=== PATIENT | female | born 1990 ===

== ENCOUNTER 2022-09-28 12:00 | Emergency (ER) | payer OTHER, SELFPAY ==
--- NOTE | 2022-09-28 12:21 | ED.GENADULT ---
HPI - General Adult General Chief complaint: Urogenital-Female Stated complaint: Kidney stone? Back pain nausea Related Data Allergies Allergy/AdvReac Type Severity Reaction Status Date / Time No Known Allergies Allergy Verified 09/28/22 12:21 [facility] Social History Social History Advance Directives: No Physical Exam ED Vital Signs: Vital Signs - 24 hr 09/28/22 12:22 Temperature 96 F L Pulse Rate 133 H Respiratory Rate 19 Blood Pressure 140/71 H Pulse Oximetry 98 BMI result Body Mass Index 48.8 Course Course Course Narrative: RME: 31yo F w/PMHx renal stones, c/o bilateral flank pain radiating to lower abdomen since last night w/assoc urinary frequency, nausea and vomiting. Also reports chills. denies prior abdominal surgery Appears uncomfortable Labs, UA, CTAP ordered Full HPI, ROS and PE to be performed by primary ED provider. Reevaluation(s) Reevaluation #1: Patient apparently eloped. I did review her lab test. She does have some mild white blood cells in her or urine. However, this does not otherwise to urinary tract infection. I did attempt to contact the patient but unsuccessful. Time: 14:50 Medical Decision Making Lab Data 09/28/22 12:36 09/28/22 12:36 Labs: Lab Results 09/28/22 09/28/22 09/28/22 Range/Units 12:36 12:36 12:36 WBC 12.8 H (4.8-10.8) X10*3/uL RBC 4.18 L (4.20-5.50) X10*6/uL Hgb 13.1 (12.0-16.0) g/dl Hct 39.1 (37.0-47.0) % MCV 93.5 (80.0-98.0) fL MCH 31.3 (27.0-33.0) pg MCHC 33.5 (31.0-35.0) g/dl RDW 13.7 (11.0-16.0) % Plt Count 290 (160-400) X10*3/uL MPV 8.6 L (9.4-12.3) fL Immature Gran % (Auto) 0.7 H (0.0-0.4) % Neut % (Auto) 87.4 H (45-73) % Lymph % (Auto) 6.8 L (20-40) % Elk % (Auto) 4.6 (2-11) % Eos % (Auto) 0.3 (0-4) % Baso % (Auto) 0.2 (0-2) % Lymph # (Auto) 0.9 L (1.2-4.9) X10*3/uL Elk # (Auto) 0.6 (0.1-1.2) X10*3/uL Eos # (Auto) 0.0 (0.0-0.4) X10*3/uL Baso # (Auto) 0.0 (0.0-0.2) X10*3/uL Abs Immat Gran (auto) 0.09 H (0.00-0.03) X10*3/uL Absolute Neuts (auto) 11.2 H (2.0-8.3) x10*3/uL Absolute Nucleated RBC 0.000 (0.0-0.012) X10*3/uL Nucleated RBC % (auto) 0.0 (0.0-0.2) /100WBC Sodium 134 L (135-145) mmol/L Potassium 3.8 (3.3-5.1) mmol/L Chloride 105 (96-108) mmol/L Carbon Dioxide 19 L (22-29) mmol/L Anion Gap 14 (12-20) BUN 14 (9-16) mg/dL Creatinine 1.00 (0.5-1.4) mg/dL Estim Creat Clear Calc 94.4 Estimated GFR > 60 Random Glucose 116 H (60-115) mg/dL Calcium 9.1 (8.4-10.2) mg/dL Total Bilirubin 0.7 (0.0-1.0) mg/dL Direct Bilirubin 0.2 (0.0-0.5) mg/dL AST 15 (5-31) U/L ALT 26 (0-31) U/L Alkaline Phosphatase 81 (39-117) U/L Total Protein 7.7 (6.5-8.0) g/dL Albumin 4.4 (3.5-5.0) g/dL Lipase 30 (8-78) U/L Urine Color Yellow Urine Appearance Clear Urine pH 5.5 (5.0-9.0) Ur Specific [place] 1.010 (1.005-1.025) Urine Protein Negative (Neg-Trace) mg/dL Urine Glucose (UA) Negative (Negative) mg/dL Urine Ketones Negative (Negative) mg/dL Urine Blood Small (1+) H (Negative) Urine Nitrite Negative (Negative) Ur Leukocyte Esterase Trace H (Negative) Urine RBC 3-5 H (0-2) /HPF Urine WBC 6-10 H (0-5) /HPF Ur Squamous Epith Cells 0-2 (0-2) /HPF Urine Bacteria None Seen (None Seen) Hyaline Casts 0-2 (0-2) /LPF Discharge Plan Discharge Clinical Impression: Eloped from emergency department Patient Disposition: Elopement Discharge Date/Time: 09/28/22 14:11
[2022-09-28 12:22] VITALS: BP 140/71; PULSE 133; RESP 19; TEMP 35.5; O2SAT 98; BMI 48.8
--- NOTE | 2022-09-28 12:39 | MHC.EDTECH ---
Labs and urine collected and sent to lab
[2022-09-28 12:42] LABS: MANUAL DIFF FLAG NO
[2022-09-28 12:44] LABS: Appearance Urine Clear; Basophils Percent Auto 0.2 % (0-2); Color Urine Yellow; Eosinophils Percent Auto 0.3 % (0-4); Glucose Urine UA Negative (Negative); Hematocrit 39.1 % (37.0-47.0); Hemoglobin 13.1 g/dl (12.0-16.0); Imm Gran Abs Auto 0.09 X10*3/uL (0.00-0.03); Imm Gran Pct Auto 0.7 % (0.0-0.4); Leukocyte Esterase Urine Trace (Negative); Lymphocytes Absolute Auto 0.9 X10*3/uL (1.2-4.9); Lymphocytes Percent Auto 6.8 % (20-40); Mean Corpuscular HGB Conc 33.5 g/dl (31.0-35.0); Mean Corpuscular Hemoglobin 31.3 pg (27.0-33.0); Mean Corpuscular Volume 93.5 fL (80.0-98.0); Mean Platelet Volume 8.6 fL (9.4-12.3); Monocytes Absolute Auto 0.6 X10*3/uL (0.1-1.2); Monocytes Percent Auto 4.6 % (2-11); Neutrophils Absolute Auto 11.2 x10*3/uL (2.0-8.3); Neutrophils Percent Auto 87.4 % (45-73); Nitrite Urine Negative (Negative); PH 5.5 (5.0-9.0); Platelet Count 290 X10*3/uL (160-400); Red Blood Count 4.18 X10*6/uL (4.20-5.50); Red Cell Distribution Width 13.7 % (11.0-16.0); UMIC TRIGGER UACC YES; Urine Blood Small (1+) (Negative); Urine Ketones Negative (Negative); Urine Protein Negative (Neg-Trace); White Blood Count 12.8 X10*3/uL (4.8-10.8)
[2022-09-28 12:56] LABS: Bacteria Urine None Seen (None Seen); Hyaline Casts Urine 0-2 /LPF (0-2); Squamous Epithelial Cell Urine 0-2 /HPF (0-2); UACC Culture Trigger YES
[2022-09-28 12:59] LABS: Alanine Aminotransferase 26 U/L (0-31); Albumin Level 4.4 g/dL (3.5-5.0); Alkaline Phosphatase 81 U/L (39-117); Anion Gap 14 (12-20); Aspartate Amino Transferase 15 U/L (5-31); Bilirubin Direct 0.2 mg/dL (0.0-0.5); Bilirubin Total 0.7 mg/dL (0.0-1.0); Blood Urea Nitrogen 14 mg/dL (9-16); Calcium 9.1 mg/dL (8.4-10.2); Carbon Dioxide 19 mmol/L (22-29); Chloride 105 mmol/L (96-108); Creatinine Clr Calc Pharmacy 94.4; Estimated Glomerular Filt Rate > 60; Glucose Random 116 mg/dL (60-115); Lipase 30 U/L (8-78); Potassium 3.8 mmol/L (3.3-5.1); Sodium 134 mmol/L (135-145); Total Protein 7.7 g/dL (6.5-8.0)
--- OUTSIDE RECORDS SUMMARY | 2022-09-28 14:00 | XMS_ITS | Continuity of Care Document ---
Author Name Unknown Organization [facility] Address [address] [place] [address]- Care Team Providers Care Plant Anatomy Teacher Name Role Phone Zeenat Kumar DO Primary Care Physician [place] [facility] [place] 07/13/22 - 08/12/22 [facility]/[place] [address]- Attending Physician: Demetrius Clayton Admitting Physician: AdmDemetrius paniagua Referring Physician: AdmtrDemetrius Allergies, Adverse Reactions, Alerts Substance Reaction Severity Status Animal Dander 1 Active Bee Stings Active 1cat dander Immunizations Given and Recorded Vaccine Date Status Refusal Reason influenza virus vaccine, inactivated 06/01/22 Give n tetanus/diphtheria/pertussis, acel(Tdap) 10/19/18 Given tetanus/diphtheria/pertussis, acel(Tdap) 03/20/09 Given Human Papillomavirus Vaccine 04/24/15 Given Human Papillomavirus Vaccine 07/10/14 Given influ virus vac, H1N1, inactive(oldterm) 02/24/10 Given tetanus-diphtheria toxoids (Td) 01/29/04 Given Varicella Virus Vaccine 04/08/97 Given Measles/Mumps/Rubella Virus Vaccine 11/28/96 Given Measles/Mumps/Rubella Virus Vaccine 11/13/92 Given Haemophilus B Conj Vaccine (oldterm) 01/11/96 Give n Haemophilus B Conj Vaccine (oldterm) 02/12/93 Give n Poliovirus Vaccine, Inactivated 12/11/95 Given Poliovirus Vaccine, Inactivated 05/10/93 Given Poliovirus Vaccine, Inactivated 03/07/92 Given Poliovirus Vaccine, Inactivated 01/11/92 Given Diphth/Pertussis,Acel/Tetanus (oldterm) 12/11/95 G iven Diphth/Pertussis,Acel/Tetanus (oldterm) 05/10/93 G iven Diphth/Pertussis,Acel/Tetanus (oldterm) 05/09/92 G iven Diphth/Pertussis,Acel/Tetanus (oldterm) 03/07/92 G iven Diphth/Pertussis,Acel/Tetanus (oldterm) 01/11/92 G iven Hepatitis B Vaccine (old term) 02/12/93 Given Hepatitis B Vaccine (old term) 06/11/92 Given Hepatitis B Vaccine (old term) 04/10/92 Given Medications Antonette 24 Hour Allergy oral tablet 1 tablet, By Mouth, Daily, # 30 tablet, 0 Refills, Maintenance, 06/01/22 16:54:00 EST, Tablet, Partial fill upon patient request if the prescription is for a schedule II opioid drug. Start Date: 06/01/22 Status: Ordered azelastine nasal 0.15% spray 2 sprays, Nares, Both, Daily, PRN for allergy symptoms, USE IN AM AND CAN USE FLONASE IN PM AFTER SINUS RINSE, # 1 each, 1 Refills, Maintenance, 07/27/22 19:14:00 EDT, [place], [id number], Partial fill upon patient request if the prescription is... Start Date: 07/27/22 Status: Ordered azelastine-fluticasone 137 mcg-50 mcg/inh nasal spray See Instructions, 1 sprays 2 times a day in each nostril. IF COVERED BY INSURANCE (D/C RX FOR ASTEPRO), # 23 Gm, 1 Refills, Maintenance, 07/27/22 19:12:00 EDT, [id number], Partial fill upon patient request if the prescription is for a schedu... Start Date: 07/27/22 Status: Ordered meloxicam 15 mg oral tablet TAKE 1 TABLET BY MOUTH EVERY DAY NEEDED Start Date: 06/01/22 Status: Ordered NeilMed Sinus Rinse Kit nasal powder for reconstitution See Instructions, PLS GIVE WHOLE KIT INCLUDING THE SINUS RINSE BOTTLE OR NETIPOT IF COVERED, # 1 kit, 1 Refills, Maintenance, 07/27/22 19:09:00 EDT, [id number], Partial fill upon patient request if the prescription is for a schedule II opioid... Start Date: 07/27/22 Status: Ordered tiZANidine 4 mg oral tablet TAKE 1 TABLET BY MOUTH THREE TIMES A DAY NEEDED Start Date: 06/01/22 Status: Ordered Vistaril pamoate 25 mg oral capsule 1 capsule = 25 mg, By Mouth, Daily at bedtime, PRN for anxiety, for 14 days, # 14 capsule, 1 Refills, Acute 08/24/22 19:07:00 EDT, 07/27/22 19:07:00 EDT, [place], [id number], Partial fill upon patient request if the prescription is for a sched... Start Date: 07/27/22 Stop Date: 08/24/22 Status: Ordered Problem List Condition Confirmation Course Effective Dates Status Health St atus Informant Anemia, mild Confirmed Active History of gestational diabetes Confirmed Active Positive depression screening Confirmed Active Headache, classical migraine Confirmed Active Obesity Confirmed Active Severe obesity Confirmed Active Social History Social History Type Response Tobacco Use: 4 or less cigar ettes(less than 1/4 pack)/day in last 30 days. Other: 1-2/day, skip some days. Smokeless tobacco use: not smoking daily. Sex Note * Event Display: X-Ray Hand/Wrist, Non- Authored Date: * Event Display: X-Ray Spine, Non- Authored Date: * Event Display: Ultrasound Abdomen, Non- Authored Date: * Event Display: X-Ray Spine, Non- Authored Date: Patient Care team information Care Team Personnel Name: Zeenat Kumar DO Position: S Resident Member Role: PCP Address: Address: [address] [place] [address] [place] [address]- Care Team Related Persons Name: MADELAINE DARBY Address: [address] Address: home [address] [place] [address] [place] Name: MARY DARBY Address: home [address] [place] [address] Name: GABI STOLL Address: home [address] [place] [address]
--- OUTSIDE RECORDS SUMMARY | 2022-09-28 14:00 | XMS_ITS | Continuity of Care Document ---
Author Name Unknown Organization [facility] Address [address] [place] [address]- Care Team Providers Care Managing Principal Name Role Phone Not on Staff, PCP Primary Care Physician Unavail able [facility] Date[facility]s): 02/[facility]/21 - 03/12/[address] [address] Attending Physician: Ursula Teixeira CNM Admitting Physician: Ursula Teixeira CNM Referring Physician: Ursula Teixeira CNM Allergies, Adverse Reactions, Alerts Substance Reaction Severity Status Animal Dander 1 Active Bee Stings Active 1cat dander Immunizations Given and Recorded Vaccine Date Status Refusal Reason tetanus/diphtheria/pertussis, acel(Tdap) 10/19/18 Given tetanus/diphtheria/pertussis, acel(Tdap) 03/20/09 [...] B Vaccine (old term) 04/10/92 Given Medications Benadryl 25 mg oral capsule 1 capsule = 25 mg, By Mouth, 3 times a day, 0 Refills, Maintenance, 06/01/18 19:39:46 EST Start Date: 06/01/18 Status: Ordered ferrous sulfate 160 mg oral tablet, extended release 1 tablet = 160 mg, By Mouth, Daily, # 30 tablet, 3 Refills, Maintenance, 07/20/18 20:05:50 EDT, ER Tablet Start Date: 07/20/18 Stop Date: 11/17/18 Status: Ordered ibuprofen 600 mg oral tablet 600 mg, 1, tablet, By Mouth, Every 6 hours, PRN, # 40 tablet, Refills 3, Tot. Refills 3, Maintenance, Pain , Mild, 09/21/19 10:59:00 EDT, Route to Pharmacy Electronically, [facility], 155, cm, 09/21/19 10:09:00 EDT, Height, 96.4, kg, 05/... Start Date: 09/21/19 Status: Ordered Liletta 52 mg intrauterine device 1 each = 52 mg, Intrauterine, Once, Please bring to surgery for insertion., # 1 each, 0 Refills, Soft Stop, 09/21/19 10:59:00 EDT, [facility], 155, cm, 09/21/19 10:09:00 EDT, Height, 96.4, kg, 09/01/19 15:40:00 EDT, Dry Weight Start Date: 09/21/19 Status: Ordered Loratadine By Mouth, Daily, Refills 0, Maintenance, 06/01/18 19:39:26 EST Start Date: 06/01/18 Status: Ordered miSOPROStol 200 mcg oral tablet See Instructions, Place tablets between cheek and gums three hours prior to surgery., # 2 tablet, 0Refills, Maintenance, 09/21/19 10:59:00 EDT, [facility], 155, cm, 09/21/19 10:09:00 EDT, Height, 96.4, kg, 09/01/19 15:40:00 EDT, Dry Weight Start Date: 09/21/19 Status: Ordered PNV oral tablet 1 tablet, By Mouth, Daily, # 30 tablet, 11 Refills, Maintenance, 06/02/18 13:21:00 EST, 1 tablet ByMouth Daily,x30 days Start Date: 06/02/18 Stop Date: 05/28/19 Status: Ordered ProAir HFA 90 mcg/inh inhalation aerosol with adapter See Instructions, 2 puffs Inhalation 4 times a day PRN, Refills 0, Maintenance, 08/06/15 15:53:04, Instructions Replace Required Details Start Date: 08/06/15 Status: Ordered Tums 500 mg oral tablet, chewable 500 mg, 1, tablet, Chew, 3 times a day, PRN, # 100 tablet, Refills 0, Tot. Refills 0, Maintenance, as needed for dyspepsia, 09/05/19 8:30:00 EDT, Route to Pharmacy Electronically, [facility] #[id number],155, cm, 09/05/19 8:27:00 EDT, Height, 96.4, kg, 05... Start Date: 09/05/19 Status: Ordered Tylenol 325 mg oral capsule 2 capsule = 650 mg, By Mouth, Every 4 hours, PRN as needed for pain, # 90 capsule, 0 Refills, Maintenance, 09/05/19 8:27:00 EDT, Capsule, [facility], [facility], cm, 09/05/19 8:27:00 EDT, Height, 96.4, kg, 09/01/19 15:40:00 EDT, Dry Weight Start Date: 09/05/19 Status: Ordered Zofran 4 mg oral tablet 1 tablet = 4 mg, By Mouth, Every 8 hours, PRN Nausea & Vomiting, # 10 tablet, 0 Refills, Maintenance, 09/05/19 8:28:00 EDT, Tablet, [facility], 155, cm, 09/05/19 8:27:00 EDT, Height, 96.4, kg, 09/01/19 15:40:00 EDT, Dry Weight Start Date: 09/05/19 Status: Ordered Problem List Condition Effective Dates Status Health Status Inform ant Anemia, mild(Confirmed) Active History of gestational diabetes(Confirmed) Active Positive depression screening(Confirmed) Active Headache, classical migraine(Confirmed) Active Obesity(Confirmed) Active Social History Social History Type Response Smoking Status Former smoker, quit more than 30 days ago; Tobacco user in household: No; Other: no cig in 5ds; entered on: 08/30/19 Sex
--- OUTSIDE RECORDS SUMMARY | 2022-09-28 14:00 | XMS_ITS | Continuity of Care Document ---
Author Name Unknown Organization [facility] Address [address] [place] [address]- Care Team Providers Care Laborer Stores Name Role Phone Not on Staff, PCP Primary Care Physician Unavail able [facility] Date[facility]s): 10/29/19 - 11/28/19 [facility] [address] [place] [address]- [facility] Attending Physician: Demetrius Clayton Admitting Physician: AdmDemetrius [...] 09/21/19 10:59:00 EDT, Route to Pharmacy Electronically, [facility], 155, cm, 09/21/19 10:09:00 EDT, Height, 96.4, kg, 05/... Start Date: 09/21/19 Status: Ordered Liletta 52 mg intrauterine device 1 each = 52 mg, Intrauterine, Once, Please bring to surgery for insertion., # 1 each, 0 Refills, Soft Stop, 09/21/19 10:59:00 EDT, [facility], 155, cm, 09/21/19 10:09:00 EDT, Height, 96.4, kg, 09/01/19 15:40:00 EDT, Dry Weight Start Date: 09/21/19 Status: Ordered Loratadine By Mouth, Daily, Refills 0, Maintenance, 06/01/18 19:39:26 EST Start Date: 06/01/18 Status: Ordered miSOPROStol 200 mcg oral tablet See Instructions, Place tablets between cheek and gums three hours prior to surgery., # 2 tablet, 0Refills, Maintenance, 09/21/19 10:59:00 EDT, [facility], 155, cm, 09/21/19 10:09:00 [...] 09/05/19 8:30:00 EDT, Route to Pharmacy Electronically, [facility] #[id number],155, cm, 09/05/19 8:27:00 EDT, Height, 96.4, [...]
--- OUTSIDE RECORDS SUMMARY | 2022-09-28 14:00 | XMS_ITS | Continuity of Care Document ---
Author Name Unknown Organization [facility] Address [address] [place] [address]- Care Team Providers Care Attorney Lawyer Name Role Phone Not on Staff, PCP Primary Care Physician Unavail able [facility] Date[facility]s): 10/04/19 - 11/03/19 [facility] [address] [address]- [facility] Attending Physician: Demetrius Clayton Admitting Physician: Demetrius Clayton Referring Physician: AdmtrDemetrius Allergies, Adverse Reactions, Alerts [...] 09/21/19 10:59:00 EDT, Route to Pharmacy Electronically, [facility], 155, cm, 09/21/19 10:09:00 EDT, Height, 96.4, kg, 05/... Start Date: 09/21/19 Status: Ordered Liletta 52 mg intrauterine device 1 each = 52 mg, Intrauterine, Once, Please bring to surgery for insertion., # 1 each, 0 Refills, Soft Stop, 09/21/19 10:59:00 EDT, [facility], 155, cm, 09/21/19 10:09:00 EDT, Height, 96.4, kg, 09/01/19 15:40:00 EDT, Dry Weight Start Date: 09/21/19 Status: Ordered Loratadine By Mouth, Daily, Refills 0, Maintenance, 06/01/18 19:39:26 EST Start Date: 06/01/18 Status: Ordered miSOPROStol 200 mcg oral tablet See Instructions, Place tablets between cheek and gums three hours prior to surgery., # 2 tablet, 0Refills, Maintenance, 09/21/19 10:59:00 EDT, [facility], 155, cm, 09/21/19 10:09:00 EDT, [...] 09/05/19 8:30:00 EDT, Route to [facility], [id number], cm, 09/05/19 8:27:00 EDT, Height, 96.4, [...]
--- OUTSIDE RECORDS SUMMARY | 2022-09-28 14:00 | XMS_ITS | Continuity of Care Document ---
Author Name Unknown Organization [facility] Address [address] [place] [address]- Care Team Providers Care Label Operator Name Role Phone Not on Staff, PCP Primary Care Physician Unavail able [facility]): 09/14[facility]19 - 10/21/[address] [address]- [facility] Attending Physician: Not on Staff, Attending MD Allergies, Adverse Reactions, Alerts Substance Reaction Severity [...] 09/21/19 10:59:00 EDT, Route to Pharmacy Electronically, [facility], 155, cm, 09/21/19 10:09:00 EDT, Height, 96.4, kg, 05/... Start Date: 09/21/19 Status: Ordered Liletta 52 mg intrauterine device 1 each = 52 mg, Intrauterine, Once, Please bring to surgery for insertion., # 1 each, 0 Refills, Soft Stop, 09/21/19 10:59:00 EDT, [facility], 155, cm, 09/21/19 10:09:00 EDT, Height, 96.4, kg, 09/01/19 15:40:00 EDT, Dry Weight Start Date: 09/21/19 Status: Ordered Loratadine By Mouth, Daily, Refills 0, Maintenance, 06/01/18 19:39:26 EST Start Date: 06/01/18 Status: Ordered miSOPROStol 200 mcg oral tablet See Instructions, Place tablets between cheek and gums three hours prior to surgery., # 2 tablet, 0Refills, Maintenance, 09/21/19 10:59:00 EDT, [facility], 155, cm, 09/21/19 10:09:00 EDT, Height, 96.4, kg, 09/01/19 15:40:00 EDT, Dry Weight Start Date: 09/21/19 Status: Ordered PNV oral tablet 1 tablet, By Mouth, Daily, # 30 tablet, 11 Refills, Maintenance, 06/02/18 13:21:00 EST, 1 tablet ByNcuth Daily,x30 days Start Date: 06/02/18 Stop Date: [...] 09/05/19 8:30:00 EDT, Route to Pharmacy Electronically, [facility] #[id number],155, cm, 09/05/19 8:27:00 EDT, Height, 96.4, [...]
--- OUTSIDE RECORDS SUMMARY | 2022-09-28 14:00 | XMS_ITS | Continuity of Care Document ---
Author Name Unknown Organization [facility] Address [address] [place] [address]- Care Team Providers Care Records Management Director Name Role Phone Not on Staff, PCP Primary Care Physician Unavail able [facility]): 04/02/22 - 05/02/22 [facility] [address] [place], [place] [address] Allergies, Adverse Reactions, Alerts Substance Reaction Severity [...] 09/21/19 10:59:00 EDT, Route to Pharmacy Electronically, [facility], 155, cm, 09/21/19 10:09:00 EDT, Height, 96.4, kg, ... Start Date: 09/21/19 Status: Ordered Liletta 52 mg intrauterine device 1 each = 52 mg, Intrauterine, Once, Please bring to surgery for insertion., # 1 each, 0 Refills, Soft Stop, 09/21/19 10:59:00 EDT, [facility], 155, cm, 09/21/19 10:09:00 EDT, Height, 96.4, kg, 09/01/19 15:40:00 EDT, Dry Weight Start Date: 09/21/19 Status: Ordered Loratadine By Mouth, Daily, Refills 0, Maintenance, 06/01/18 19:39:26 EST Start Date: 06/01/18 Status: Ordered miSOPROStol 200 mcg oral tablet See Instructions, Place tablets between cheek and gums three hours prior to surgery., # 2 tablet, 0Refills, Maintenance, 09/21/19 10:59:00 EDT, [facility], 155, cm, 09/21/19 10:09:00 EDT, [...] 09/05/19 8:30:00 EDT, Route to Pharmacy Electronically, [id number],155, cm, 09/05/19 8:27:00 EDT, Height, [...] Date: 09/05/19 Status: Ordered Problem List Condition Confirmation Course [...] cig in 5ds; entered on: 08/30/19 Sex Patient Care team information Care Team Personnel Name: Not on Staff, PCP Position: [facility] Physician (General Medicine) Member Role: PCP Care Team Related Persons Name: MADELAINE DARBY Address: [id number] Address: home [address] [place] [address] Name: MARY DARBY Address: home [address] [place] [id number] Name: GABI STOLL Address: home [address] [place] [address]
--- OUTSIDE RECORDS SUMMARY | 2022-09-28 14:00 | XMS_ITS | Continuity of Care Document ---
Author Name Unknown Organization [facility] Address [address] [place] [address]- Care Team Providers Care Optician Apprentice Dispensing Name Role Phone Zeenat Kumar DO Primary Care Physician [facility]): 06/01/22 - 07/18/22 [facility]/[place] [address]- Attending Physician: Nav Russell MD Admitting Physician: Nav Russell MD Allergies, Adverse Reactions, Alerts Substance Reaction [...] opioid drug. Start Date: 06/01/22 Status: Ordered cefdinir 300 mg oral capsule 1 capsule = 300 mg, By Mouth, 2 times a day, for 7 days, # 14 capsule, 0 Refills, Acute 07/20/22 17:28:00 EDT, 07/13/22 17:28:00 EDT, Caps[facility], [facility], Partial fill upon patient request ifthe prescription is for a schedule II opioid drug.,... Start Date: 07/13/22 Stop Date: 07/20/22 Status: Ordered meloxicam 15 mg oral tablet TAKE 1 TABLET BY MOUTH EVERY DAY NEEDED Start Date: 06/01/22 Status: Ordered tiZANidine 4 mg oral tablet TAKE 1 TABLET BY MOUTH THREE TIMES A DAY NEEDED Start Date: 06/01/22 Status: Ordered Vistaril pamoate 25 mg oral capsule 1 capsule = 25 mg, By Mouth, Daily at bedtime, PRN for anxiety, for 14 days, # 14 capsule, 0 Refills, Acute 07/27/22 17:26:00 EDT, 07/13/22 17:26:00 EDT, Caps[facility], [facility], Partial fill upon patient request if the prescription is for a sched... Start Date: 07/13/22 Stop Date: 07/27/22 Status: Ordered Problem List Condition Confirmation Course [...] Smokeless tobacco use: not smoking daily. Sex Patient Care team information Care Team Personnel Name: Zeenat Kumar DO Position: S Resident Member Role: PCP Address: Address: [address] [place] [address] [place] [address]- Care Team Related Persons Name: MADELAINE DARBY Address: [address] Address: home [address] [place] [address] [place] Name: MARY DARBY Address: home [address] [place] [id number] Name: GABI STOLL Address: home [address] [place] [address]
--- OUTSIDE RECORDS SUMMARY | 2022-09-28 14:00 | XMS_ITS | Continuity of Care Document ---
Author Name Unknown Organization [facility] Address [address] [place] [address]- Care Team Providers Care Resident Service Coordinator Name Role Phone Zeenat Kumar DO Primary Care Physician [facility]s): 06/11/22 - 07/19/22 [facility]/[place] [address]- Attending Physician: Not on Staff, Attending MD [...] Team Personnel Name: Zeenat Kumar DO Position: [facility] Resident Member Role: PCP Address: Address: [address] [place] [address] [place] [address]- Care Team Related Persons Name: MADELAINE DARBY Address: [address] Address: home [address] [place] [address] [place] Name: MARY DARBY Address: home [address] [place] [address] Name: GABI STOLL Address: home [address] [place] [address]
--- OUTSIDE RECORDS SUMMARY | 2022-09-28 14:00 | XMS_ITS | Continuity of Care Document ---
Author Name Unknown Organization [facility] Address [address] [place] [address]- Care Team Providers Care Education Adviser Name Role Phone Not on Staff, PCP Primary Care Physician Unavail able [facility]): [facility] - 11/04/[address] [address]- [facility] Attending Physician: Not on Staff, Attending MD [...] 09/21/19 10:59:00 EDT, Route to Pharmacy Electronically, [facility], 155, cm, 09/21/19 10:09:00 EDT, Height, 96.4, kg, 05/... Start Date: 09/21/19 Status: Ordered Liletta 52 mg intrauterine device 1 each = 52 mg, Intrauterine, Once, Please bring to surgery for insertion., # 1 each, 0 Refills, Soft Stop, 09/21/19 10:59:00 EDT, [facility], 155, cm, 09/21/19 10:09:00 EDT, Height, 96.4, kg, 09/01/19 15:40:00 EDT, Dry Weight Start Date: 09/21/19 Status: Ordered Loratadine By Mouth, Daily, Refills 0, Maintenance, 06/01/18 19:39:26 EST Start Date: 06/01/18 Status: Ordered miSOPROStol 200 mcg oral tablet See Instructions, Place tablets between cheek and gums three hours prior to surgery., # 2 tablet, 0Refills, Maintenance, 09/21/19 10:59:00 EDT, [facility], 155, cm, 09/21/19 10:09:00 EDT, Height, 96.4, kg, 09/01/19 15:40:00 EDT, Dry Weight Start Date: 09/21/19 Status: Ordered PNV oral tablet 1 tablet, By Mouth, Daily, # 30 tablet, 11 Refills, Maintenance, 06/02/18 13:21:00 EST, 1 tablet ByMiuth Daily,x30 days Start Date: 06/02/18 Stop Date: [...] 09/05/19 8:30:00 EDT, Route to Pharmacy Electronically, [facility]/pharmacy #[id number],155, cm, 09/05/19 8:27:00 EDT, Height, 96.4, [...]
--- OUTSIDE RECORDS SUMMARY | 2022-09-28 14:00 | XMS_ITS | Continuity of Care Document ---
Author Name Unknown Organization [facility] Address [address] [place] [address]- Care Team Providers Care Firer Retort Name Role Phone Not on Staff, PCP Primary Care Physician Unavail able [facility] Date[facility]s): 04/30/22 - 05/30/22 [facility] [address]- [place] Allergies, Adverse Reactions, Alerts Substance Reaction Severity [...] Diphth/Pertussis,Acel/Tetanus (oldterm) 05/09/92 G iven Diphth/Pertussis,Acel/Tetanus (oldterm) 11/19/92 G iven Diphth/Pertussis,Acel/Tetanus (oldterm) 01/11/92 G iven [...] 09/21/19 10:59:00 EDT, Route to Pharmacy Electronically, [facility], 155, cm, 09/21/19 10:09:00 EDT, Height, 96.4, kg, 05/... Start Date: 09/21/19 Status: Ordered Liletta 52 mg intrauterine device 1 each = 52 mg, Intrauterine, Once, Please bring to surgery for insertion., # 1 each, 0 Refills, Soft Stop, 09/21/19 10:59:00 EDT, [facility], 155, cm, 09/21/19 10:09:00 EDT, Height, 96.4, kg, 09/01/19 15:40:00 EDT, Dry Weight Start Date: 09/21/19 Status: Ordered Loratadine By Mouth, Daily, Refills 0, Maintenance, 06/01/18 19:39:26 EST Start Date: 06/01/18 Status: Ordered miSOPROStol 200 mcg oral tablet See Instructions, Place tablets between cheek and gums three hours prior to surgery., # 2 tablet, 0Refills, Maintenance, 09/21/19 10:59:00 EDT, [facility], 155, cm, 09/21/19 10:09:00 [...] 09/05/19 8:30:00 EDT, Route to Pharmacy Electronically, [facility]/pharmacy #[id number],155, cm, 09/05/19 8:27:00 EDT, Height, [...] Personnel Name: Not on Staff, PCP Position: [facility] Physician (General Medicine) Member Role: PCP Care Team Related Persons Name: MADELAINE DARBY Address: [id number] Address: home [address] [place] [address] Name: WILNER MARY Address: [place] [address] Name: GABI STOLL Address: home [address] [place] [address]
--- OUTSIDE RECORDS SUMMARY | 2022-09-28 14:00 | XMS_ITS | Continuity of Care Document ---
Author Name Unknown Organization [facility] ter Address [address] [place] [address]- Care Team Providers Care Supervisor Soakers Name Role Phone Not on Staff, PCP Primary Care Physician Unavail able [facility] Date(s): 09/22/19 - 09/22/[address] [address]- [facility] Discharge Disposition: A-D/C Home Attending Physician: Tricia Murphy MD Admitting Physician: Tricia Murphy MD Referring Physician: Tricia Murphy MD Allergies, Adverse Reactions, Alerts Substance Reaction [...] 09/21/19 10:59:00 EDT, Route to Pharmacy Electronically, [facility], 155, cm, 09/21/19 10:09:00 EDT, Height, 96.4, kg, 05/... Start Date: 09/21/19 Status: Ordered Liletta 52 mg intrauterine device 1 each = 52 mg, Intrauterine, Once, Please bring to surgery for insertion., # 1 each, 0 Refills, Soft Stop, 09/21/19 10:59:00 EDT, [facility], 155, cm, 09/21/19 10:09:00 EDT, Height, 96.4, kg, 09/01/19 15:40:00 EDT, Dry Weight Start Date: 09/21/19 Status: Ordered Loratadine By Mouth, Daily, Refills 0, Maintenance, 06/01/18 19:39:26 EST Start Date: 06/01/18 Status: Ordered miSOPROStol 200 mcg oral tablet See Instructions, Place tablets between cheek and gums three hours prior to surgery., # 2 tablet, 0Refills, Maintenance, 09/21/19 10:59:00 EDT, [facility], 155, cm, 09/21/19 10:09:00 [...] Active Headache, classical migraine(Confirmed) Active Obesity(Confirmed) Active Vital Signs Most recent to oldest [Reference Range]: 1 2 3 Height 154 cm (09/22/19 1:00 PM) Weight 96.7 kg (09/22/19 1:00 PM) Oxygen Saturation [94-100 %] 98 % (09/22/19 5:00 PM) 100 % (09/22/19 4:45 PM) 98 % (09/22/19 4:30 PM) Pulse Rate [55-90 bpm] 86 bpm (09/22/19 1:00 PM) Body Mass Index [18.5-24.99] 40.77 *>HHI* (09/22/19 1:00 PM) Blood Pressure [90-138/55-84 mm Hg] 120/64mm Hg (09/22/19 5:00 PM) 113/65mm Hg (09/22/19 4:45 PM) 101/87mm Hg (09/22/19 4:30 PM) Respiratory Rate [16-30 br/min] 17 br/min (09/22/19 5:00 PM) 16 br/min (09/22/19 4:50 PM) 12 br/min *L* (09/22/19 4:30 PM) Temperature [96.8-100.4 DegF] 97.9 DegF (09/22/19 5:00 PM) 98.8 DegF (09/22/19 4:00 PM) 97.5 DegF (09/22/19 1:00 PM) Liters per Minute 4 L/min (09/22/19 4:00 PM) Mode of Delivery (Oxygen) Room air (09/22/19 5:00 PM) Room air (09/22/19 4:45 PM) Room air (09/22/19 4:30 PM) Blood pressure sites Arm, right (09/22/19 4:00 PM) Arm, right (09/22/19 1:00 PM) Temperature Route Temporal (09/22/19 5:00 PM) Temporal (09/22/19 4:00 PM) Temporal (09/22/19 1:00 PM) Dry Weight 96.7 kg (09/22/19 1:00 PM) Weight Obtained Via Standing scale (09/22/19 1:00 PM) Dry Weight Obtained Via Standing scale (09/22/19 1:00 PM) Social History Social History Type Response Smoking Status Former smoker, quit more than 30 days ago; Tobacco user in household: No; Other: no cig in 5ds; entered on: 08/30/19 Sex
--- OUTSIDE RECORDS SUMMARY | 2022-09-28 14:01 | XMS_ITS | Continuity of Care Document ---
Author Name Unknown Organization [facility] Address [address] [place] [address]- Care Team Providers Care Naval Gunfire Liaison Officer Name Role Phone Zeenat Kumar DO Primary Care Physician [facility]s): 07/27/22 - 08/26/22 [facility] [address]- [place] Allergies, Adverse Reactions, Alerts Substance Reaction [...] each, 1 Refills, Maintenance, 07/27/22 19:14:00 EDT, [place], [facility], Partial fill upon patient request [...] 25 mg, By Mouth, Daily at bedtime, for 30 days, # 30 capsule, 1 Refills, Acute 10/13/2313:56:00 EDT, 08/14/22 14:56:00 EDT, [facility]/pharmacy #1972, Partial fill upon patient request if the prescription is for a schedule II opioid drug., 155,... Start Date: 08/14/22 Stop Date: 10/13/22 Status: Ordered Problem List Condition Confirmation Course [...] S Resident Member Role: PCP Address: Address: [address] [place] [address] [place] [address]- Care Team Related Persons Name: MADELAINE DARBY Address: [id number] Address: home [address] [place] [address] [place] Name: MARY DARBY Address: home [address] [place] [address] Name: GABI STOLL Address: home [address] [place] [address]
--- OUTSIDE RECORDS SUMMARY | 2022-09-28 14:01 | XMS_ITS | Continuity of Care Document ---
Author Name Unknown Organization [facility] ter Address [address] [place] [address]- Care Team Providers Care Product Safety Expert Name Role Phone Not on Staff, PCP Primary Care Physician Unavail able [facility]s): 04/12/22 - 04/12/[address] [address]- Discharge Disposition: A-D/C Walkout Attending Physician: Not on Staff, Attending MD Admitting Physician: Not on Staff, Admitting MD Referring Physician: Not on Staff, Referring MD Allergies, Adverse Reactions, Alerts Substance Reaction [...] 09/21/19 10:59:00 EDT, Route to Pharmacy Electronically, [facility], 155, cm, 09/21/19 10:09:00 EDT, Height, 96.4, kg, 05/... Start Date: 09/21/19 Status: Ordered Liletta 52 mg intrauterine device 1 each = 52 mg, Intrauterine, Once, Please bring to surgery for insertion., # 1 each, 0 Refills, Soft Stop, 09/21/19 10:59:00 EDT, [facility], 155, cm, 09/21/19 10:09:00 EDT, Height, 96.4, kg, 09/01/19 15:40:00 EDT, Dry Weight Start Date: 09/21/19 Status: Ordered Loratadine By Mouth, Daily, Refills 0, Maintenance, 06/01/18 19:39:26 EST Start Date: 06/01/18 Status: Ordered miSOPROStol 200 mcg oral tablet See Instructions, Place tablets between cheek and gums three hours prior to surgery., # 2 tablet, 0Refills, Maintenance, 09/21/19 10:59:00 EDT, [facility], 155, cm, 09/21/19 10:09:00 EDT, [...] EDT, Route to Pharmacy Electronically, [facility]/pharmacy #[id number],155, cm, 09/05/19 8:27:00 EDT, Height, 96.4, kg, 05... Start Date: 09/05/19 Status: Ordered Tylenol 325 mg oral capsule 2 capsule = 650 mg, By Mouth, Every 4 hours, PRN as needed for pain, # 90 capsule, 0 Refills, Maintenance, 09/05/19 8:27:00 EDT, Capsule, [facility]/pharmacy #1972, 155, cm, 09/05/19 8:27:00 EDT, Height, [...] Obesity Confirmed Active Severe obesity Confirmed Active Vital Signs Most recent to oldest [Reference Range]: 1 2 Height 155 cm (04/12/22 12:43 PM) 155 cm (04/12/22 12:40 PM) Oxygen Saturation [94-100 %] 99 % (04/12/22 2:48 PM) 99 % (04/12/22 12:40 PM) Pulse Rate [55-90 bpm] 100 bpm *H* (04/12/22 2:48 PM) 108 bpm *H* (04/12/22 12:40 PM) Blood Pressure [90-138/55-84 mm Hg] 125/ 85mm Hg (04/12/22 2:48 PM) 150/85mm Hg *H* (04/12/22 12:40 PM) Respiratory Rate [16-30 br/min] 16 br/mi n (04/12/22 2:48 PM) 24 br/min (04/12/22 12:40 PM) Temperature [96.8-100.4 DegF] 98.5 DegF (04/12/22 2:48 PM) 98.6 DegF (04/12/22 12:40 PM) Mode of Delivery (Oxygen) Room air (04/12/22 2:48 PM) Room air (04/12/22 12:40 PM) Blood pressure sites Arm, left (04/12/22 2:48 PM) Arm, left (04/12/22 12:40 PM) Temperature Route Oral (04/12/22 2:48 PM) Oral (04/12/22 12:40 PM) Dry Weight 95.5 kg (04/12/22 12:43 PM) 95.5 kg (04/12/22 12:40 PM) Weight Obtained Via Patient/family state d (04/12/22 12:40 PM) Dry Weight Obtained Via Patient/family s tated (04/12/22 12:40 PM) Social History Social History Type Response Smoking Status Former smoker, quit more than 30 days ago; Tobacco user in household: No; Other: no cig in 5ds; entered on: 08/30/19 Sex Patient Care team information Care Team Personnel Name: Not on Staff, PCP Position: S Physician (General Medicine) Member Role: PCP Care Team Related Persons Name: NAHID DARBYABELLA Address: Address: [address] Name: WILNER, MARY Address: home [address] [place] [address] Name: GABI STOLL Address: home [address] [place] [address]
--- OUTSIDE RECORDS SUMMARY | 2022-09-28 14:01 | XMS_ITS | Continuity of Care Document ---
Author Name Unknown Organization [facility] ter Address [address] [place] [address]- Care Team Providers Care Shellfish Manager Name Role Phone Not on Staff, PCP Primary Care Physician Unavail able [facility] Date[facility]s): 09/03/19 - 09/05/[address] [address]- [facility] Discharge Disposition: A-D/C Home Attending Physician: Toy Thakur MD Admitting Physician: Toy Thakur MD Referring Physician: Kathrine Ventura MD Allergies, Adverse Reactions, Alerts Substance Reaction [...] B Vaccine (old term) 04/10/92 Given Medications Bactrim DS 800 mg-160 mg oral tablet 1 tablet, By Mouth, Every 12 hours, for 12 days, # 24 tablet, 0 Refills, Acute 09/17/19 8:27:00 EDT, 09/05/19 8:27:00 EDT, Tablet, [facility]/pharmacy #1972, 1 tablet By Mouth Every 12 hours,x12 days, 155, cm, 09/05/19 8:27:00 EDT, Height, 96.4, kg, 09/01/19... Start Date: 09/05/19 Stop Date: 09/17/19 Status: Ordered Benadryl 25 mg oral capsule 1 capsule = 25 mg, By Mouth, 3 times a day, 0 Refills, Maintenance, 06/01/18 19:39:46 EST Start Date: 06/01/18 Status: Ordered ferrous sulfate 160 mg oral tablet, extended release 1 tablet = 160 mg, By Mouth, Daily, # 30 tablet, 3 Refills, Maintenance, 07/20/18 20:05:50 EDT, ER Tablet Start Date: 07/20/18 Stop Date: 11/17/18 Status: Ordered Loratadine By Mouth, Daily, Refills 0, Maintenance, 06/01/18 19:39:26 EST Start Date: 06/01/18 Status: Ordered MiraLax oral powder for reconstitution = 17 Gm, By Mouth, Daily, dissolve in water before taking, # 255 Gm, 1 Refills, Maintenance, 09/05/19 8:27:00 EDT, REC Powder, [facility]/pharmacy #1972, 17 Gm By Mouth Daily,Instr:dissolve in water before taking, 155, cm, 09/05/19 8:27:00 EDT, Height, 96.4,... Start Date: 09/05/19 Status: Ordered oxyCODONE 5 mg oral tablet 5 mg, 1, tablet, By Mouth, Every 6 hours, PRN, # 3 tablet, Refills 0, Tot. Refills 0, Maintenance, for pain, 09/05/19 8:27:00 EDT, Route to Pharmacy Electronically, [facility]/pharmacy #1972, Partial fill upon patient request, 155, cm, 09/05/19 8:27:00 EDT,... Start Date: 09/05/19 Status: Ordered PNV oral tablet 1 tablet, [...] 09/05/19 8:30:00 EDT, Route to Pharmacy Electronically, [facility]/pharmacy #1972,155, cm, 09/05/19 8:27:00 EDT, [...] Active Headache, classical migraine(Confirmed) Active Obesity(Confirmed) Active Results Orders for Microbiology Reports Name Date Blood Culture #2 09/01/19 Blood Culture 09/01/19 Microbiology Reports TEST:Blood Culture STATUS:Unauthenticated BODY SITE: SOURCE:Blood COLLECTED DATE/TIME:09/01/19 6:20 PM Blood Culture SPECIMEN DESCRIPTION : BLOOD R AC SPECIAL REQUESTS : NONE CULTURE : NO GROWTH 4 DAYS REPORT STATUS : PRELIMINARY REPORT TEST:Blood Culture, Second Order STATUS:Unauthenticated BODY SITE: SOURCE:Blood COLLECTED DATE/TIME:09/01/19 6:20 PM Blood Culture, Second Order SPECIMEN DESCRIPTION : BLOOD LAC SPECIAL REQUESTS : AEROBIC BOTTLE ONLY CULTURE : NO GROWTH 4 DAYS REPORT STATUS : PRELIMINARY REPORT Vital Signs Most recent to oldest [Reference Range]: 1 2 3 Height 155 cm (09/05/19 8:00 AM) 155 cm (09/05/19 4:00 AM) 155 cm (09/05/19 12:00 AM) Weight 96.4 kg (09/01/19 3:53 PM) 96.4 kg (09/01/19 3:40 PM) Oxygen Saturation [94-100 %] 100 % (09/05/19 8:00 AM) 99 % (09/05/19 4:00 AM) 100 % (09/05/19 12:00 AM) Pulse Rate [55-90 bpm] 78 bpm (09/05/19 8:00 AM) 74 bpm (09/05/19 4:00 AM) 92 bpm *H* (09/05/19 12:00 AM) Body Mass Index [18.5-24.99] 40.12 *>HHI* (09/01/19 3:53 PM) Blood Pressure [90-138/55-84 mm Hg] 91/55mm Hg (09/05/19 8:00 AM) 97/55mm Hg (09/05/19 4:00 AM) 107/55mm Hg (09/05/19 12:00 AM) Respiratory Rate [16-30 br/min] 15 br/min *L* (09/05/19 12:11 PM) 18 br/min (09/05/19 8:00 AM) 20 br/min (09/05/19 6:00 AM) Temperature [96.8-100.4 DegF] 97.4 DegF (09/05/19 8:00 AM) 98.4 DegF (09/05/19 4:00 AM) 97.4 DegF (09/05/19 12:00 AM) Mode of Delivery (Oxygen) Room air (09/05/19 8:00 AM) Room air (09/05/19 4:00 AM) Room air (09/05/19 12:00 AM) Blood pressure sites Arm, left (09/05/19 8:00 AM) Arm, left (09/03/19 4:00 PM) Arm, left (09/03/19 12:00 PM) Temperature Route Oral (09/05/19 8:00 AM) Oral (09/05/19 4:00 AM) Oral (09/05/19 12:00 AM) Dry Weight 96.4 kg (09/01/19 3:40 PM) Weight Obtained Via Standing scale (09/01/19 3:40 PM) Dry Weight Obtained Via Standing scale (09/01/19 3:40 PM) Social History Social History Type Response Smoking Status Former smoker, quit more than 30 days ago; Tobacco user in household: No; Other: no cig in 5ds; entered on: 08/30/19 Sex
--- OUTSIDE RECORDS SUMMARY | 2022-09-28 14:01 | XMS_ITS | Continuity of Care Document ---
Author Name Unknown Organization [facility] Address [address] [place] [address]- Care Team Providers Care Rn Float Name Role Phone Zeenat Kumar DO Primary Care Physician Encounter [facility] Date(s): 08/12/22 - 09/11/22 [facility] [place] [address]- [place] Allergies, Adverse Reactions, Alerts Substance Reaction [...] each, 1 Refills, Maintenance, 07/27/22 19:14:00 EDT, [place], [facility], Partial fill upon patient request [...] Refills, Acute 10/13/2313:56:00 EDT, 08/14/22 14:56:00 EDT, [facility]/pharmacy #1972, Partial fill upon patient request [...] S Resident Member Role: PCP Address: Address: [address] [place] [address] [place] [address]- Care Team Related Persons Name: MADELAINE DARBY Address: [id number] Address: home [address] [place] [address] [place] Name: MARY DARBY Address: home [address] [place] [address] Name: GABI STOLL Address: home [address] [place] [address]
--- OUTSIDE RECORDS SUMMARY | 2022-09-28 14:01 | XMS_ITS | Continuity of Care Document ---
Author Name Unknown Organization [facility] Address [address] [place] [address]- Care Team Providers Care Roll Or Tape Edge Machine Operator Name Role Phone Not on Staff, PCP Primary Care Physician Unavail able Encounter [facility] Date(s): 01/15/21 - 02/14/21 [facility] [address] [address]- Attending Physician: Demetrius Clayton Admitting Physician: Demetrius [...] 09/21/19 10:59:00 EDT, Route to Pharmacy Electronically, [facility], 155, cm, 09/21/19 10:09:00 EDT, Height, 96.4, kg, 05... Start Date: 09/21/19 Status: Ordered Liletta 52 mg intrauterine device 1 each = 52 mg, Intrauterine, Once, Please bring to surgery for insertion., # 1 each, 0 Refills, Soft Stop, 09/21/19 10:59:00 EDT, [facility], 155, cm, 09/21/19 10:09:00 EDT, Height, 96.4, kg, 09/01/19 15:40:00 EDT, Dry Weight Start Date: 09/21/19 Status: Ordered Loratadine By Mouth, Daily, Refills 0, Maintenance, 06/01/18 19:39:26 EST Start Date: 06/01/18 Status: Ordered miSOPROStol 200 mcg oral tablet See Instructions, Place tablets between cheek and gums three hours prior to surgery., # 2 tablet, 0Refills, Maintenance, 09/21/19 10:59:00 EDT, [facility], 155, cm, 09/21/19 10:09:00 [...] 09/05/19 8:30:00 EDT, Route to Pharmacy Electronically, [facility]/pharmacy #[id number],155, cm, 09/05/19 8:27:00 EDT, Height, [...]
--- OUTSIDE RECORDS SUMMARY | 2022-09-28 14:01 | XMS_ITS | Continuity of Care Document ---
Author Name Unknown Organization [facility] Address [address] [place] [address]- Care Team Providers Care Medicaid Business Analyst Name Role Phone Not on Staff, PCP Primary Care Physician Unavail able [facility] Date[facility]s): 09/20/19 - 10/28/19 [facility] [address] [address]- [facility] Attending Physician: Not on Staff, Attending [...] 09/21/19 10:59:00 EDT, Route to Pharmacy Electronically, [facility], 155, cm, 09/21/19 10:09:00 EDT, Height, 96.4, kg, 05/... Start Date: 09/21/19 Status: Ordered Liletta 52 mg intrauterine device 1 each = 52 mg, Intrauterine, Once, Please bring to surgery for insertion., # 1 each, 0 Refills, Soft Stop, 09/21/19 10:59:00 EDT, [facility], 155, cm, 09/21/19 10:09:00 EDT, Height, 96.4, kg, 09/01/19 15:40:00 EDT, Dry Weight Start Date: 09/21/19 Status: Ordered Loratadine By Mouth, Daily, Refills 0, Maintenance, 06/01/18 19:39:26 EST Start Date: 06/01/18 Status: Ordered miSOPROStol 200 mcg oral tablet See Instructions, Place tablets between cheek and gums three hours prior to surgery., # 2 tablet, 0Refills, Maintenance, 09/21/19 10:59:00 EDT, [facility], 155, cm, 09/21/19 10:09:00 EDT, Height, 96.4, kg, 09/01/19 15:40:00 EDT, Dry Weight Start Date: 09/21/19 Status: Ordered PNV oral tablet 1 tablet, By Mouth, Daily, # 30 tablet, 11 Refills, Maintenance, 06/02/18 13:21:00 EST, 1 tablet BySduth Daily,x30 days Start Date: 06/02/18 Stop Date: [...] 09/05/19 8:30:00 EDT, Route to Pharmacy Electronically, [facility]/pharmacy #[id number],155, cm, 09/05/19 8:27:00 EDT, Height, [...]
--- OUTSIDE RECORDS SUMMARY | 2022-09-28 14:01 | XMS_ITS | Continuity of Care Document ---
Author Name Unknown Organization [facility] Address [address] [place] [address]- Care Team Providers Care Manager Army Name Role Phone Not on Staff, PCP Primary Care Physician Unavail able [facility] Date[facility]s): 09/21/19 - 11/03/[address] [address]- [facility] Attending Physician: Not on Staff, Attending [...] 09/21/19 10:59:00 EDT, Route to Pharmacy Electronically, [facility], 155, cm, 09/21/19 10:09:00 EDT, Height, 96.4, kg, 05/... Start Date: 09/21/19 Status: Ordered Liletta 52 mg intrauterine device 1 each = 52 mg, Intrauterine, Once, Please bring to surgery for insertion., # 1 each, 0 Refills, Soft Stop, 09/21/19 10:59:00 EDT, [facility], 155, cm, 09/21/19 10:09:00 EDT, Height, 96.4, kg, 09/01/19 15:40:00 EDT, Dry Weight Start Date: 09/21/19 Status: Ordered Loratadine By Mouth, Daily, Refills 0, Maintenance, 06/01/18 19:39:26 EST Start Date: 06/01/18 Status: Ordered miSOPROStol 200 mcg oral tablet See Instructions, Place tablets between cheek and gums three hours prior to surgery., # 2 tablet, 0Refills, Maintenance, 09/21/19 10:59:00 EDT, [facility], 155, cm, 09/21/19 10:09:00 EDT, Height, 96.4, kg, 09/01/19 15:40:00 EDT, Dry Weight Start Date: 09/21/19 Status: Ordered PNV oral tablet 1 tablet, By Mouth, Daily, # 30 tablet, 11 Refills, Maintenance, 06/02/18 13:21:00 EST, 1 tablet ByUtuth Daily,x30 days Start Date: 06/02/18 Stop Date: [...] 09/05/19 8:30:00 EDT, Route to Pharmacy Electronically, [facility]/pharmacy #[id number],155, cm, 09/05/19 8:27:00 [...]
--- OUTSIDE RECORDS SUMMARY | 2022-09-28 14:01 | XMS_ITS | Continuity of Care Document ---
Author Name [facility] Address [address] [address]- Care Team Providers Care Buttermaker Continuous Churn Name Role Phone Not on Staff, PCP Primary Care Physician Unavail able [facility]counter [facility]): [facility] - 10/15/19 [facility] [address] [address]- [facility] Attending Physician: Demetrius Clayton Admitting Physician: Demetrius Clayton Referring Physician: Demetrius Clayton Allergies, Adverse Reactions, Alerts Substance Reaction Severity [...] 09/21/19 10:59:00 EDT, Route to Pharmacy Electronically, [facility], 155, cm, 09/21/19 10:09:00 EDT, Height, 96.4, kg, 05/... Start Date: 09/21/19 Status: Ordered Liletta 52 mg intrauterine device 1 each = 52 mg, Intrauterine, Once, Please bring to surgery for insertion., # 1 each, 0 Refills, Soft Stop, 09/21/19 10:59:00 EDT, [facility], 155, cm, 09/21/19 10:09:00 EDT, Height, 96.4, kg, 09/01/19 15:40:00 EDT, Dry Weight Start Date: 09/21/19 Status: Ordered Loratadine By Mouth, Daily, Refills 0, Maintenance, 06/01/18 19:39:26 EST Start Date: 06/01/18 Status: Ordered miSOPROStol 200 mcg oral tablet See Instructions, Place tablets between cheek and gums three hours prior to surgery., # 2 tablet, 0Refills, Maintenance, 09/21/19 10:59:00 EDT, [facility], 155, cm, 09/21/19 10:09:00 [...] Active Headache, classical migraine(Confirmed) Active Obesity(Confirmed) Active Procedures Procedure Date Related Diagnosis Body Site Status Implanon 1 07/29/11 Completed 1Removed 2015 Social History Social History Type Response Smoking Status Former smoker, quit more than 30 days ago; Tobacco user in household: No; Other: no cig in 5ds; entered on: 08/30/19 Sex
--- OUTSIDE RECORDS SUMMARY | 2022-09-28 14:01 | XMS_ITS | Continuity of Care Document ---
Author Name Unknown Organization [facility] Address [address] [place] [id number]- Care Team Providers Care Acls Specialist Name Role Phone Not on Staff, PCP Primary Care Physician Unavail able [facility] 11/15/21 - 11/15/[address] [address]- Encounter Diagnosis Kidney stone on right side(Final) - 11/15/21 Discharge Disposition: A-D/C Home Attending Physician: Tomasa Valdovinos MD Admitting Physician: Tomasa Valdovinos MD Referring Physician: Not on Staff, Referring [...] 10:59:00 EDT, Route to Pharmacy Electronically, [facility], 155, cm, 09/21/19 10:09:00 EDT, Height, 96.4, kg, 05... Start Date: 09/21/19 Status: Ordered Liletta 52 mg intrauterine device 1 each = 52 mg, Intrauterine, Once, Please bring to surgery for insertion., # 1 each, 0 Refills, Soft Stop, 09/21/19 10:59:00 EDT, [facility], 155, cm, 09/21/19 10:09:00 EDT, Height, 96.4, kg, 09/01/19 15:40:00 EDT, Dry Weight Start Date: 09/21/19 Status: Ordered Loratadine By Mouth, Daily, Refills 0, Maintenance, 06/01/18 19:39:26 EST Start Date: 06/01/18 Status: Ordered miSOPROStol 200 mcg oral tablet See Instructions, Place tablets between cheek and gums three hours prior to surgery., # 2 tablet, 0Refills, Maintenance, 09/21/19 10:59:00 EDT, [facility], 155, cm, 09/21/19 10:09:00 EDT, Height, 96.4, kg, 09/01/19 15:40:00 EDT, Dry Weight Start Date: 09/21/19 Status: Ordered MorPHINE Inj 4 mg, Injection, IV Push Slowly, Once, Routine, 11/15/21 17:00:00 EDT, Stop date 11/15/21 17:00:00 EDT Start Date: 11/15/21 Stop Date: 11/15/21 Status: Completed oxyCODONE 5 mg oral capsule 1 capsule = 5 mg, By Mouth, Every 6 hours, PRN as needed for pain, # 12 capsule, 0 Refills, Acute 11/18/21 19:44:00 EDT, 11/15/21 19:42:00 EDT, Capsule, [facility] #[id number], Partial fill upon patient request if the prescription is for a schedule II opi... Start Date: 11/15/21 Stop Date: 11/18/21 Status: Ordered oxyCODONE 5 mg oral tablet 5 mg, Tablet, By Mouth, Once, Routine, 11/15/21 20:00:00 EDT, Stop date 11/15/21 20:00:00 EDT Start Date: 11/15/21 Stop Date: 11/15/21 Status: Completed PNV oral tablet 1 tablet, By Mouth, [...] 8:30:00 EDT, Route to Pharmacy Electronically, [facility]acy #[id number],155, cm, 09/05/19 8:27:00 EDT, Height, 96.4, kg, 05... Start Date: 09/05/19 Status: Ordered Tylenol 325 mg oral capsule 2 capsule = 650 mg, By Mouth, Every 4 hours, PRN as needed for pain, # 90 capsule, 0 Refills, Maintenance, 09/05/19 8:27:00 EDT, Capsule, [facility]/pharmacy #[id number], 155, cm, 09/05/19 8:27:00 EDT, Height, 96.4, kg, 09/01/19 15:40:00 EDT, Dry Weight Start Date: 09/05/19 Status: Ordered Zofran 4 mg oral tablet 1 tablet = 4 mg, By Mouth, Every 8 hours, PRN Nausea & Vomiting, # 10 tablet, 0 Refills, Maintenance, 09/05/19 8:28:00 EDT, Tablet, [facility]/pharmacy #[id number], 155, cm, 09/05/19 8:27:00 EDT, Height, 96.4, kg, 09/01/19 15:40:00 EDT, Dry Weight Start Date: 09/05/19 Status: Ordered Problem List Condition Effective Dates Status Health Status Inform ant Anemia, mild(Confirmed) Active History of gestational diabetes(Confirmed) Active Positive depression screening(Confirmed) Active Headache, classical migraine(Confirmed) Active Obesity(Confirmed) Active Severe obesity(Confirmed) Active Vital Signs Most recent to oldest [Reference Range]: 1 2 3 Height 155 cm (11/15/21 4:46 PM) 155 cm (11/15/21 1:45 PM) 155 cm (11/15/21 1:26 PM) Weight 109.09 kg (11/15/21 4:46 PM) 109.09 kg (11/15/21 1:45 PM) 109.09 kg (11/15/21 1:26 PM) Oxygen Saturation [94-100 %] 100 % (11/15/21 7:50 PM) 100 % (11/15/21 4:46 PM) 100 % (11/15/21 1:26 PM) Pulse Rate [55-90 bpm] 81 bpm (11/15/21 7:50 PM) 84 bpm (11/15/21 4:46 PM) 99 bpm *H* (11/15/21 1:26 PM) Body Mass Index [18.5-24.99] 45.41 *>HHI* (11/15/21 4:46 PM) 45.41 *>HHI* (11/15/21 1:26 PM) Blood Pressure [90-138/55-84 mm Hg] 128/83mm Hg (11/15/21 7:50 PM) 126/87mm Hg (11/15/21 4:46 PM) 154/85mm Hg *H* (11/15/21 1:26 PM) Respiratory Rate [16-30 br/min] 16 br/min (11/15/21 7:50 PM) 18 br/min (11/15/21 5:23 PM) 18 br/min (11/15/21 4:53 PM) Temperature [96.8-100.4 DegF] 98.6 DegF (11/15/21 1:26 PM) Mode of Delivery (Oxygen) Room air (11/15/21 7:50 PM) Room air (11/15/21 4:46 PM) Room air (11/15/21 1:26 PM) Blood pressure sites Arm, right (11/15/21 4:46 PM) Arm, right (11/15/21 1:26 PM) Temperature Route Oral (11/15/21 1:26 PM) Dry Weight 109.09 kg (11/15/21 4:46 PM) 109.09 kg (11/15/21 1:45 PM) Weight Obtained Via Patient/family state d (11/15/21 1:26 PM) Social History Social History Type Response Smoking Status Former smoker, quit more than 30 days ago; Tobacco user in household: No; Other: no cig in 5ds; entered on: 08/30/19 Sex
--- OUTSIDE RECORDS SUMMARY | 2022-09-28 14:01 | XMS_ITS | Continuity of Care Document ---
Author Name Unknown [facility] Address [address] [address]- Care Team Providers Care Livestock Handler Name Role Phone Not on Staff, PCP Primary Care Physician Unavail able [facility] 08[facility]19 - 10/15/19 [facility] [address] [address]- [facility] Attending Physician: Not on Staff, Attending MD Referring Physician: Ramila Lui CNM Allergies, Adverse Reactions, Alerts Substance Reaction [...] 09/21/19 10:59:00 EDT, Route to Pharmacy Electronically, [facility], 155, cm, 09/21/19 10:09:00 EDT, Height, 96.4, kg, 05... Start Date: 09/21/19 Status: Ordered Liletta 52 mg intrauterine device 1 each = 52 mg, Intrauterine, Once, Please bring to surgery for insertion., # 1 each, 0 Refills, Soft Stop, 09/21/19 10:59:00 EDT, [facility], 155, cm, 09/21/19 10:09:00 EDT, Height, 96.4, kg, 09/01/19 15:40:00 EDT, Dry Weight Start Date: 09/21/19 Status: Ordered Loratadine By Mouth, Daily, Refills 0, Maintenance, 06/01/18 19:39:26 EST Start Date: 06/01/18 Status: Ordered miSOPROStol 200 mcg oral tablet See Instructions, Place tablets between cheek and gums three hours prior to surgery., # 2 tablet, 0Refills, Maintenance, 09/21/19 10:59:00 EDT, [facility], 155, cm, 09/21/19 10:09:00 EDT, [...] 09/05/19 8:30:00 EDT, Route to Pharmacy Electronically, [facility]/pharmacy #[id number],155, cm, 09/05/19 8:27:00 EDT, Height, 96.4, kg, 05... Start Date: 09/05/19 Status: Ordered Tylenol 325 mg oral capsule 2 capsule = 650 mg, By Mouth, Every 4 hours, PRN as needed for pain, # 90 capsule, 0 Refills, Maintenance, 09/05/19 8:27:00 EDT, Capsule, [facility]/pharmacy #[id number], 155, cm, 09/05/19 8:27:00 EDT, Height, 96.4, kg, 09/01/19 15:40:00 EDT, Dry Weight Start Date: 09/05/19 Status: Ordered Zofran 4 mg oral tablet 1 tablet = 4 mg, By Mouth, Every 8 hours, PRN Nausea & Vomiting, # 10 tablet, 0 Refills, Maintenance, 09/05/19 8:28:00 EDT, Tablet, [facility]/pharmacy #1972, 155, cm, 09/05/19 8:27:00 EDT, [...]
== END 2022-09-28 14:11 | disposition left against medical advice (07) ==
PROVIDERS: Physician Assistant; Emergency Provider Emergency Medicine
DX: R10.9 Unspecified abdominal pain (principal); R35.0 Frequency of micturition; R11.2 Nausea with vomiting, unspecified
CPT/HCPCS: 36415; 80048; 80076; 81001; 83690; 85025; 87086; 87088; 87186; 99282; 99283